=== PATIENT | male | born 1980 | race Caucasian/White ===

== ENCOUNTER 2016-06-25 09:01 | Emergency (ER) | payer MEDICAID ==
[~2016-06-25] VITALS: Ht 172.7 cm; Wt 109.1 kg
[~2016-06-25 09:01] MED LIST: INDOCIN50 MG PO; [UNRECOGNIZED DRUG - REMARK] PO
[2016-06-25 09:11] VITALS: BP 141/81; PULSE 61; TEMP 97.5
[2016-06-25 10:00] LABS: ADJUSTED CALCIUM 8.7 mg/dL (8.4-10.2); ALANINE AMINOTRANSFERASE 33 U/L (21-72); ALBUMIN 4.4 gm/dL (3.5-5.0); ALKALINE PHOSPHATASE 155 U/L (50-136); ANION GAP 18 mmol/L (7-16); BILIRUBIN,TOTAL 1.1 mg/dL (0.0-1.0); BLOOD UREA NITROGEN 23 mg/dL (9-20); CARBON DIOXIDE 24 mmol/L (22-30); CHLORIDE 92 mmol/L (98-107); GLUCOSE 363 mg/dL (74-106); SODIUM 134 mmol/L (137-145); TOTAL PROTEIN 8.4 gm/dL (6.4-8.2)
[2016-06-25 10:04] LABS: ARTERIAL BLD GAS O2 SATURATION 95.6 % (92-100); ARTERIAL BLD GAS TCO2 CT 25.2; ARTERIAL BLOOD GAS BASE EXCESS -1.2 (-2-2); ARTERIAL BLOOD GAS PO2 81.3 mmHg (80-100); ARTERIAL BLOOD GAS pH 7.38 (7.35-7.45)
[2016-06-25 10:05] LABS: ALLEN TEST YES; ALLENS TEST RESULT PASS; ATS? YES
[2016-06-25 10:06] LABS: BASO % 0.7 % (0.0-2.0); EOS # 0.1 (0.0-0.7); EOS % 1.6 % (0-4.0); GRAN # 3.3 (1.4-6.5); GRAN % 53.6 % (42.2-75.2); HEMATOCRIT 44.4 % (42.0-52.0); HEMOGLOBIN 16.8 g/dl (13.5-18.0); LYMPH # 2.3 (1.2-3.4); LYMPH % 38.2 % (20.0-51.0); MEAN CELL VOLUME 83 fl (80.0-100.0); MEAN CORPUSCULAR HEMOGLOBIN 32 pg (27.0-31.0); MEAN CORPUSCULAR HGB CONC 38 g/dl (33.0-37.0); MEAN PLATELET VOLUME 12.4 fl (7.4-10.4); MONO # 0.3 (0.1-0.6); MONO % 5.2 % (1.7-9.3); PLATELET COUNT 245 K/mm3 (130-400); RED BLOOD COUNT 5.33 M/mm3 (4.20-5.60); REDCELL DISTRIBUTION WIDTH-CV 11.5 % (11.5-14.5); WHITE BLOOD COUNT 6.1 K/mm3 (4.8-10.8)
[2016-06-25 10:07] LABS: POTASSIUM 4.4 mmol/L (3.4-5.0)
[2016-06-25] MEDS ORDERED: GLUCOSE TEST ST1 DEV MC (10:49)
[2016-06-25] MEDS ORDERED: FREESTYLE PREC1 EAC5 MC (10:49)
[2016-06-25] MEDS ORDERED: GLUCOPHAGE500 MG/TAB PO (10:49)
== END 2016-06-25 11:52 | disposition home or self-care (01) ==
LOC: COL.ER 09:01
PROVIDERS: Emergency Medicine
DX: E11.65 Type 2 diabetes mellitus with hyperglycemia (principal)
CPT/HCPCS: J1815; J7030

== ENCOUNTER 2016-06-26 23:25 | Emergency (ER) | payer MEDICAID ==
[~2016-06-26] VITALS: Ht 172.7 cm; Wt 104.5 kg
[~2016-06-26 23:25] MED LIST changes: +FREESTYLE PREC1 EAC5 MC; +GLUCOPHAGE500 MG/TAB PO; +GLUCOSE TEST ST1 DEV MC
[2016-06-26 23:28] VITALS: TEMP 97.9
[2016-06-27 00:18] LABS: BASO % 0.4 % (0.0-2.0); EOS # 0.1 (0.0-0.7); EOS % 1.2 % (0-4.0); GRAN # 4.4 (1.4-6.5); GRAN % 63.9 % (42.2-75.2); HEMOGLOBIN 14.8 g/dl (13.5-18.0); LYMPH # 2.1 (1.2-3.4); LYMPH % 30.2 % (20.0-51.0); MEAN CELL VOLUME 83 fl (80.0-100.0); MEAN CORPUSCULAR HEMOGLOBIN 31 pg (27.0-31.0); MEAN CORPUSCULAR HGB CONC 38 g/dl (33.0-37.0); MEAN PLATELET VOLUME 12.1 fl (7.4-10.4); MONO # 0.3 (0.1-0.6); PLATELET COUNT 222 K/mm3 (130-400); RED BLOOD COUNT 4.73 M/mm3 (4.20-5.60); REDCELL DISTRIBUTION WIDTH-CV 11.6 % (11.5-14.5); WHITE BLOOD COUNT 6.8 K/mm3 (4.8-10.8)
[2016-06-27 00:25] LABS: CALCIUM 8.3 mg/dL (8.4-10.2); CREATININE, serum 0.98 mg/dL (0.66-1.25); POTASSIUM 4.1 mmol/L (3.4-5.0)
[2016-06-27 00:35] LABS: PH 6 (5-8); SQUAMOUS EPITHELIAL 0-2 /hpf; URINE APPEARANCE Clear; URINE BACTERIA None Seen /hpf; URINE BILIRUBIN Negative (NEGATIVE); URINE BLOOD Negative (NEGATIVE); URINE COLOR Straw; URINE GLUCOSE 3+ (NEGATIVE); URINE KETONE Trace (NEGATIVE); URINE RBC 0-2 /hpf; URINE UROBILINOGEN Negative (NEGATIVE); URINE WBC 0-2 /hpf
[2016-06-27 00:54] LABS: ALLEN TEST YES; ALLENS TEST RESULT PASS; ARTERIAL BLD GAS O2 SATURATION 95.7 % (92-100); ARTERIAL BLD GAS TCO2 CT 25.9; ARTERIAL BLOOD GAS BASE EXCESS -0.3 (-2-2); ARTERIAL BLOOD GAS HCO3 24.7 meq/L (22-26); ARTERIAL BLOOD GAS PO2 80.6 mmHg (80-100); ARTERIAL BLOOD GAS pH 7.39 (7.35-7.45); ATS? YES
[2016-06-27 03:00] VITALS: BP 123/69; PULSE 62
== END 2016-06-27 03:03 | disposition home or self-care (01) ==
LOC: COL.ER 23:25
PROVIDERS: Emergency Medicine
DX: E11.65 Type 2 diabetes mellitus with hyperglycemia (principal); Z79.84 Long term (current) use of oral hypoglycemic drugs
CPT/HCPCS: J1815; J7030

== ENCOUNTER → 2016-10-13 | Outpatient (CLI) | payer MEDICAID | LOC: SUN.DIA 08:38 | DX: E11.65 Type 2 diabetes mellitus with hyperglycemia (principal); Z79.84 Long term (current) use of oral hypoglycemic drugs; Z68.30 Body mass index [BMI] 30.0-30.9, adult; Z71.3 Dietary counseling and surveillance | CPT/HCPCS: G0108 ==

== ENCOUNTER 2017-05-27 17:32 | Inpatient (IN) | payer MEDICAID ==
[~2017-05-27] VITALS: Ht 172.7 cm; Wt 80.9 kg
[2017-05-27] VITALS (7 sets, daily range): BP systolic 122; BP diastolic 79; PULSE 75–78; TEMP 98; O2SAT 95
[2017-05-27 20:49] LABS: CALCIUM 8.6 mg/dL (8.4-10.2); CREATININE, serum 0.9 mg/dL (0.66-1.25); POTASSIUM 3.6 mmol/L (3.4-5.0)
[2017-05-27] MEDS ORDERED: GLUCOPHAGE500 MG/TAB PO (21:41)
[2017-05-28] VITALS (7 sets, daily range): BP systolic 97–124; BP diastolic 52–86; PULSE 55–72; TEMP 97.4–98.9
[2017-05-28 05:42] LABS: BASO % 0.6 % (0.0-2.0); EOS # 0.1 (0.0-0.7); EOS % 1.5 % (0-4.0); GRAN # 2.4 (1.4-6.5); GRAN % 52.1 % (42.2-75.2); HEMOGLOBIN 13.1 g/dl (13.5-18.0); LYMPH # 1.9 (1.2-3.4); LYMPH % 40.1 % (20.0-51.0); MEAN CELL VOLUME 81 fl (80.0-100.0); MEAN CORPUSCULAR HEMOGLOBIN 29 pg (27.0-31.0); MEAN CORPUSCULAR HGB CONC 36 g/dl (33.0-37.0); MEAN PLATELET VOLUME 11.9 fl (7.4-10.4); MONO # 0.3 (0.1-0.6); MONO % 5.5 % (1.7-9.3); PLATELET COUNT 206 K/mm3 (130-400); RED BLOOD COUNT 4.51 M/mm3 (4.20-5.60); REDCELL DISTRIBUTION WIDTH-CV 11.9 % (11.5-14.5)
[2017-05-28 05:54] LABS: HEMATOCRIT 36.6 % (42.0-52.0)
[2017-05-28 05:56] LABS: CALCIUM 8.5 mg/dL (8.4-10.2); CREATININE, serum 0.87 mg/dL (0.66-1.25); POTASSIUM 3.4 mmol/L (3.4-5.0)
[2017-05-29 05:48] VITALS: BP 101/53; PULSE 64; TEMP 98.1
[2017-05-29 07:40] VITALS: BP 109/64; PULSE 53; TEMP 97.5
[2017-05-29] MEDS ORDERED: FREESTYLE PREC1 EAC5 MC (08:22)
[2017-05-29] MEDS ORDERED: GLUCOSE TEST ST1 DEV MC (08:23)
[2017-05-29] MEDS ORDERED: LANCETS MC (08:23)
[2017-05-29] MEDS ORDERED: BD ALCOHOL1 SWA TP (08:24)
[2017-05-29] MEDS ORDERED: THE MEDICINE SH1 DE3 MC (08:25)
[2017-05-29 08:53] LABS: BASO % 0.4 % (0.0-2.0); EOS % 0.7 % (0-4.0); GRAN # 2.7 (1.4-6.5); GRAN % 60.4 % (42.2-75.2); HEMATOCRIT 37.3 % (42.0-52.0); HEMOGLOBIN 13.2 g/dl (13.5-18.0); LYMPH # 1.5 (1.2-3.4); LYMPH % 34.5 % (20.0-51.0); MEAN CELL VOLUME 84 fl (80.0-100.0); MEAN CORPUSCULAR HEMOGLOBIN 30 pg (27.0-31.0); MEAN CORPUSCULAR HGB CONC 35 g/dl (33.0-37.0); MEAN PLATELET VOLUME 11.7 fl (7.4-10.4); MONO # 0.2 (0.1-0.6); MONO % 3.8 % (1.7-9.3); PLATELET COUNT 190 K/mm3 (130-400); RED BLOOD COUNT 4.44 M/mm3 (4.20-5.60); REDCELL DISTRIBUTION WIDTH-CV 12.2 % (11.5-14.5)
[2017-05-29 09:02] LABS: CALCIUM 8.7 mg/dL (8.4-10.2); CREATININE, serum 0.77 mg/dL (0.66-1.25); POTASSIUM 4.1 mmol/L (3.4-5.0)
[2017-05-29] MEDS ORDERED: LEVEMIR FLEX100 U/ML SQ (09:51)
[2017-05-29] MEDS ORDERED: NOVOLOG FLEX100 U/ML SQ (09:51)
== END 2017-05-29 11:30 | disposition home or self-care (01) | DRG 638 ==
LOC: COL.ER 17:32 → ICU 18:15 → MEDICAL 05-28 14:37
PROVIDERS: Nurse Practitioner; Nurse Practitioner Family
DX: E11.65 Type 2 diabetes mellitus with hyperglycemia (principal); E87.1 Hypo-osmolality and hyponatremia; E86.0 Dehydration; Z79.84 Long term (current) use of oral hypoglycemic drugs
CPT/HCPCS: 99223-AI; 99231-AI; 99239; G0378; J1650; J1815; J7030; J7120

== ENCOUNTER → 2017-06-11 | Outpatient (CLI) | payer MEDICAID ==
[~2017-06-11] MED LIST changes: +BD ALCOHOL1 SWA TP; +LANCETS MC; +LEVEMIR FLEX100 U/ML SQ; +NOVOLOG FLEX100 U/ML SQ; +THE MEDICINE SH1 DE3 MC
== END ==
LOC: SUN.DIA 11-04 09:53
DX: E11.9 Type 2 diabetes mellitus without complications (principal); Z68.26 Body mass index [BMI] 26.0-26.9, adult; Z71.3 Dietary counseling and surveillance
CPT/HCPCS: G0108

== ENCOUNTER 2018-07-23 12:52 | Emergency (ER) | payer MEDICAID ==
[~2018-07-23] VITALS: Ht 172.7 cm; Wt 72.7 kg
[2018-07-23 12:57] VITALS: TEMP 97.3
[2018-07-23 13:21] LABS: BASO % 0.6 % (0.0-2.0); EOS % 0.9 % (0-4.0); GRAN # 3.1 (1.4-6.5); GRAN % 65.9 % (42.2-75.2); HEMATOCRIT 44.2 % (42.0-52.0); HEMOGLOBIN 16.4 g/dl (13.5-18.0); LYMPH # 1.3 (1.2-3.4); LYMPH % 27.5 % (20.0-51.0); MEAN CELL VOLUME 81 fl (80.0-100.0); MEAN CORPUSCULAR HEMOGLOBIN 30 pg (27.0-31.0); MEAN CORPUSCULAR HGB CONC 37 g/dl (33.0-37.0); MEAN PLATELET VOLUME 11.8 fl (7.4-10.4); MONO # 0.2 (0.1-0.6); MONO % 4.9 % (1.7-9.3); PLATELET COUNT 246 K/mm3 (130-400); RED BLOOD COUNT 5.43 M/mm3 (4.20-5.60); REDCELL DISTRIBUTION WIDTH-CV 11.8 % (11.5-14.5)
[2018-07-23 13:30] LABS: ACETONE,SERUM NEGATIVE; ALANINE AMINOTRANSFERASE 11 U/L (21-72); ALBUMIN 4.2 gm/dL (3.5-5.0); ALKALINE PHOSPHATASE 169 U/L (50-136); ANION GAP 17 mmol/L (7-16); AST,SGOT 18 U/L (15-37); BILIRUBIN,TOTAL 0.9 mg/dL (0.0-1.0); BLOOD UREA NITROGEN 16 mg/dL (9-20); CARBON DIOXIDE 21 mmol/L (22-30); CHLORIDE 95 mmol/L (98-107); CREATININE, serum 0.83 (0.66-1.25); LIPASE 176 U/L (23-300); POTASSIUM 4.6 mmol/L (3.4-5.0); SODIUM 132 mmol/L (137-145); TOTAL PROTEIN 7.8 gm/dL (6.4-8.2)
[2018-07-23 13:32] LABS: GLUCOSE 606 mg/dL (74-106)
[2018-07-23 14:28] LABS: COLLECTION METHOD CLEAN CATCH
[2018-07-23 14:34] LABS: PH 6 (5-8); SQUAMOUS EPITHELIAL None Seen /hpf; URINE APPEARANCE Clear; URINE BACTERIA None Seen /hpf; URINE BILIRUBIN Negative (NEGATIVE); URINE BLOOD Negative (NEGATIVE); URINE COLOR Straw; URINE GLUCOSE 3+ (NEGATIVE); URINE KETONE Trace (NEGATIVE); URINE LEUKOCYTE ESTERASE Negative (NEGATIVE); URINE NITRATE Negative (NEGATIVE); URINE PROTEIN(semi-quant) Negative (NEGATIVE); URINE RBC 0-2 /hpf; URINE UROBILINOGEN Negative (NEGATIVE)
[2018-07-23] MEDS ORDERED: FREESTYLE PREC1 EAC5 MC (15:33)
[2018-07-23 17:50] VITALS: BP 109/67; PULSE 76
== END 2018-07-23 17:53 | disposition home or self-care (01) ==
LOC: COL.ER 12:52
PROVIDERS: Emergency Medicine
DX: E11.65 Type 2 diabetes mellitus with hyperglycemia (principal); Z79.4 Long term (current) use of insulin
CPT/HCPCS: J1815; J7030

== ENCOUNTER 2019-04-21 15:08 | Emergency (ER) | payer SELFPAY ==
[~2019-04-21] VITALS: Ht 172.7 cm; Wt 72.7 kg
[2019-04-21 15:22] VITALS: TEMP 97.8
[2019-04-21 15:51] LABS: BASO % 0.4 % (0.0-2.0); EOS % 0.2 % (0-4.0); GRAN # 7.1 (1.4-6.5); HEMATOCRIT 43.2 % (42.0-52.0); HEMOGLOBIN 15.2 g/dl (13.5-18.0); LYMPH # 1.5 (1.2-3.4); LYMPH % 16.4 % (20.0-51.0); MEAN CELL VOLUME 82 fl (80.0-100.0); MEAN CORPUSCULAR HEMOGLOBIN 29 pg (27.0-31.0); MEAN CORPUSCULAR HGB CONC 35 g/dl (33.0-37.0); MEAN PLATELET VOLUME 11.8 fl (7.4-10.4); MONO # 0.3 (0.1-0.6); MONO % 3.6 % (1.7-9.3); PLATELET COUNT 310 K/mm3 (130-400); RED BLOOD COUNT 5.28 M/mm3 (4.20-5.60); REDCELL DISTRIBUTION WIDTH-CV 11.8 % (11.5-14.5)
[2019-04-21 15:57] LABS: ACETONE,SERUM NEGATIVE; ALANINE AMINOTRANSFERASE 9 U/L (21-72); ALBUMIN 4.8 gm/dL (3.5-5.0); ALKALINE PHOSPHATASE 132 U/L (50-136); ANION GAP 18 mmol/L (7-16); AST,SGOT 20 U/L (15-37); BILIRUBIN,TOTAL 0.9 mg/dL (0.0-1.0); BLOOD UREA NITROGEN 16 mg/dL (9-20); CALCIUM 9.6 mg/dL (8.4-10.2); CARBON DIOXIDE 20 mmol/L (22-30); CHLORIDE 93 mmol/L (98-107); CREATININE, serum 0.83 (0.66-1.25); LIPASE 110 U/L (23-300); POTASSIUM 5.4 mmol/L (3.4-5.0); SODIUM 130 mmol/L (137-145); TOTAL PROTEIN 8.2 gm/dL (6.4-8.2)
[2019-04-21 16:07] LABS: GLUCOSE 604 mg/dL (74-106)
[2019-04-21 16:33] LABS: COLLECTION METHOD CLEAN CATCH
[2019-04-21 16:40] LABS: PH 6 (5-8); SQUAMOUS EPITHELIAL 0-2 /hpf; URINE APPEARANCE Clear; URINE BACTERIA None Seen /hpf; URINE BILIRUBIN Negative (NEGATIVE); URINE BLOOD Negative (NEGATIVE); URINE COLOR Colorless; URINE GLUCOSE 3+ (NEGATIVE); URINE KETONE Negative (NEGATIVE); URINE LEUKOCYTE ESTERASE Negative (NEGATIVE); URINE NITRATE Negative (NEGATIVE); URINE PROTEIN(semi-quant) Negative (NEGATIVE); URINE RBC None Seen /hpf; URINE UROBILINOGEN Negative (NEGATIVE)
[2019-04-21 16:55] LABS: MAGNESIUM 1.8 mg/dL (1.6-2.3)
[2019-04-21 18:02] LABS: CALCIUM 8.8 mg/dL (8.4-10.2); CREATININE, serum 0.72 (0.66-1.25); POTASSIUM 4.7 mmol/L (3.4-5.0)
[2019-04-21] MEDS ORDERED: HUMULIN 70/3100 U/M1 SQ (18:44)
[2019-04-21 19:10] VITALS: BP 116/74; PULSE 74
== END 2019-04-21 19:10 | disposition home or self-care (01) ==
LOC: COL.ER 15:08
PROVIDERS: Emergency Medicine
DX: E11.65 Type 2 diabetes mellitus with hyperglycemia (principal); Z79.4 Long term (current) use of insulin
CPT/HCPCS: J1815; J7030

== ENCOUNTER 2020-03-06 12:43 | Emergency (ER) | payer MEDICAID ==
[~2020-03-06] VITALS: Ht 172.7 cm; Wt 72.7 kg
[~2020-03-06 12:43] MED LIST changes: +HUMULIN 70/3100 U/M1 SQ
[2020-03-06 12:51] VITALS: TEMP 97.8
[2020-03-06 13:58] LABS: BASO % 0.3 % (0.0-2.0); GRAN # 2.6 (1.4-6.5); GRAN % 69.1 % (42.2-75.2); HEMATOCRIT 39.6 % (42.0-52.0); HEMOGLOBIN 14.1 g/dl (13.5-18.0); LYMPH # 0.9 (1.2-3.4); LYMPH % 23.1 % (20.0-51.0); MEAN CELL VOLUME 83 fl (80.0-100.0); MEAN CORPUSCULAR HEMOGLOBIN 30 pg (27.0-31.0); MEAN CORPUSCULAR HGB CONC 36 g/dl (33.0-37.0); MEAN PLATELET VOLUME 11.7 fl (7.4-10.4); MONO # 0.3 (0.1-0.6); MONO % 7.2 % (1.7-9.3); PLATELET COUNT 161 K/mm3 (130-400); RED BLOOD COUNT 4.78 M/mm3 (4.20-5.60); REDCELL DISTRIBUTION WIDTH-CV 11.2 % (11.5-14.5)
[2020-03-06 14:04] LABS: ALBUMIN 4.1 gm/dL (3.5-5.0); BILIRUBIN,TOTAL 0.7 mg/dL (0.0-1.0); CALCIUM 8.5 mg/dL (8.4-10.2); CREATININE, serum 0.83 (0.66-1.25); POTASSIUM 4.8 mmol/L (3.4-5.0); TOTAL PROTEIN 7.3 gm/dL (6.4-8.2)
[2020-03-06 15:10] VITALS: BP 111/75; PULSE 92
== END 2020-03-06 15:10 | disposition home or self-care (01) ==
LOC: COL.ER 12:43
PROVIDERS: Family Medicine
DX: U07.1 COVID-19 (principal); E11.65 Type 2 diabetes mellitus with hyperglycemia; Z79.4 Long term (current) use of insulin
CPT/HCPCS: J1815

== ENCOUNTER → 2020-10-31 | Outpatient (CLI) | payer MEDICAID | LOC: DIA.ED 10:46 | DX: E11.9 Type 2 diabetes mellitus without complications (principal); Z79.4 Long term (current) use of insulin | CPT/HCPCS: G0108 ==

== ENCOUNTER 2021-10-22 16:32 | Emergency (ER) | payer MEDICAID ==
[~2021-10-22] VITALS: Ht 172.7 cm; Wt 72.7 kg
[2021-10-22 16:58] VITALS: BP 128/82; PULSE 73; TEMP 98.8
[2021-10-22] MEDS ORDERED: GLUCOPHAGE500 MG/TAB PO (17:49)
[2021-10-22] MEDS ORDERED: JANUVIA 100MG100 MG PO (17:49)
[2021-10-22] MEDS ORDERED: CRESTOR20 MG PO (17:49)
[2021-10-22 18:28] LABS: BASO % 0.5 % (0.0-2.0); EOS # 0.1 K/mm3 (0.0-0.7); EOS % 0.8 % (0.0-4.0); GRAN # 4.4 K/mm3 (1.4-6.5); GRAN % 73.4 % (42.2-75.2); HEMATOCRIT 37.7 % (42.0-52.0); HEMOGLOBIN 13.1 g/dl (13.5-18.0); LYMPH # 1.3 K/mm3 (1.2-3.4); LYMPH % 20.9 % (20.0-51.0); MEAN CELL VOLUME 85 fl (80.0-100.0); MEAN CORPUSCULAR HEMOGLOBIN 29 pg (27-31); MEAN CORPUSCULAR HGB CONC 35 g/dl (33.0-37.0); MONO # 0.3 K/mm3 (0.1-0.6); MONO % 4.4 % (1.7-9.3); PLATELET COUNT 240 K/mm3 (130-400); RED BLOOD COUNT 4.46 M/mm3 (4.20-5.60); REDCELL DISTRIBUTION WIDTH-CV 11.9 % (11.5-14.5)
[2021-10-22 18:35] LABS: INR 1.3 (0.8-3.0); PROTHROMBIN TIME 14.4 SECONDS (9.7-12.8)
[2021-10-22 18:47] LABS: ALANINE AMINOTRANSFERASE 14 U/L (0-55); ALBUMIN 4.2 gm/dL (3.5-5.0); ALKALINE PHOSPHATASE 64 U/L (40-150); ANION GAP 12 mmol/L (7-16); AST,SGOT 10 U/L (5-34); BILIRUBIN,TOTAL 0.7 mg/dL (0.2-1.2); BLOOD UREA NITROGEN 11 mg/dL (9-21); CALCIUM 9.3 mg/dL (8.4-10.2); CARBON DIOXIDE 22 mmol/L (22-29); CHLORIDE 106 mmol/L (98-107); CREATININE, serum 1.07 mg/dL (0.72-1.25); GLUCOSE 210 mg/dL (70-99); POTASSIUM 3.6 mmol/L (3.5-4.5); SODIUM 140 mmol/L (136-145); TOTAL PROTEIN 7.1 gm/dL (6.2-8.1)
[2021-10-22 18:50] LABS: C-REACTIVE PROTEIN < 0.02 mg/dL (0.00-0.50)
== END 2021-10-22 19:36 | disposition home or self-care (01) ==
LOC: COL.ER 16:32
PROVIDERS: Emergency Medicine
DX: S90.222A Contusion of left lesser toe(s) with damage to nail, initial encounter (principal); X58.XXXA Exposure to other specified factors, initial encounter